=== PATIENT | female | born 1965 | race Hispanic/Latino ===

== ENCOUNTER 2017-04-06 16:36 | Emergency (ER) | payer MEDICARE ==
[2017-04-06 16:48] VITALS: BP 105/52; PULSE 85; RESP 16; TEMP 98; O2SAT 100
== END 2017-04-06 17:46 | disposition home or self-care (01) ==
LOC: H.ER 16:36
DX: R20.2 Paresthesia of skin (principal); M79.675 Pain in left toe(s)
CPT/HCPCS: 96372; 99282; J1885